=== PATIENT | female | born 1995 | race Caucasian/White ===

== ENCOUNTER 2016-05-31 11:16 | Emergency (ER) | payer OTHER ==
[~2016-05-31 11:16] MED LIST: FERRTAB2 PO
--- NOTE | 2016-05-31 11:59 | PD ---
HPI Chief Complaint nonreactive NST Date Seen: May 31, 2016 Time Seen: 11:46 Travel History International Travel<30 Days: No Contact w/Intl Traveler<30Days: No History of Present Illness HPI 20 y/o at 40/1 weeks presents from her OB office for nonreactive NST. She is seen by Chasity Chamorro, had appointment this morning and was referred over. Denies any complaints or other symptoms. Denies any vaginal bleeding/ discharge, loss of fluid, contractions. Endorses movement. Denies headache , changes in vision, abdominal pain, edema. Denies chest pain, SOB, leg pain. Para: 0 : 1 History Past Medical History Narrative Medical Iron deficiency anemia Obstetric History Obstetric History No problems with this Past Surgical History Surgical History: No Previous Surgery Family History Family History: Negative Social History Alcohol Use: No Tobacco Use: No Substance Abuse: No Allergies-Medications (Allergen,Severity, Reaction): Coded Allergies: No Known Allergies (Unverified , 05/31/16) Home Meds Active Scripts Multi-Vit/Iron-Folic Hatb-O82-Phj C (Ferralet)90-1-0.012-120 mg Tab1 Tab PO DAILY #30 BOTTLE Ref 5 Prov:Alysa Olivares CNM [facility] 03/16/16 Review of Systems General / Constitutional: Weight Gain, No: Fever, Weight Loss, Chills Eyes: No: Blurred Vision, Visual changes HENT: No: Headaches, Vertigo, Lightheadedness Cardiovascular: No: Irregular Rhythm, Chest Pain or Discomfort, Palpitations, Tachycardia, Syncope Respiratory: No: Cough, Short of Breath, Wheezing Gastrointestinal: No: Nausea, Vomiting, Diarrhea, Abdominal Pain, Constipation Genitourinary: No: Urgency, Frequency, Dysuria, Pelvic Pain, Discharge, Vaginal Bleeding Musculoskeletal: No: Weakness, Edema Skin: No Rash, No Itching, No Change in Pigmentation Neurologic: No: Weakness, Dizziness, Syncope Psychiatric: No: Anxiety, Depression Endocrine: No: Heat Intolerance, Cold Intolerance Hematologic/Lymphatic: No Easy Bruising, No Lymph Node Enlargement Physical Exam Narrative GENERAL: Well-nourished, well-developed patient. SKIN: Warm and dry. HEAD: Normocephalic and atraumatic. EYES: No scleral icterus. No injection or drainage. ENT: No nasal drainage noted. Mucous membranes pink. Airway patent. NECK: Supple, trachea midline. No JVD. CARDIOVASCULAR: Regular rate and rhythm without murmurs, gallops, or rubs. RESPIRATORY: Breath sounds equal bilaterally. No accessory muscle use. ABDOMEN/GI: Abdomen soft, non-tender, bowel sounds present, no rebound, no guarding Gravid to 40 weeks size Fundal Height: 40 GENITOURINARY: Dilatation: 1 Effacement: 0 Station: -2 Presentation: vertex Membranes: intact Uterine Contractions: none FHT's: Category: 1 Baseline: 150 Reactive: yes Variability: moderate Decels: none EXTREMITIES: No cyanosis or edema. BACK: Nontender without obvious deformity. No CVA tenderness. NEUROLOGICAL: Awake and alert. Motor and sensory grossly within normal limits. Five out of 5 muscle strength in all muscle groups. Normal speech. Data Data Vital Signs Reviewed: Yes [facility] Medical Record Reviewed: Yes Interpretation(s) 20 y/o at 40/1 weeks presents after nonreactive NST 1) IUP with nonreactive NST in office - heart monitoring - Monitor vitals - Cervical check Narrative Course / MDM Cervical check: 1cm dilated. 0%, -2. Category 1 FHT is reassuring Discharge home in stable condition. Return to ED if new or worsening symptoms F/u with OB Diagnosis Diagnosis: Primary Impression: Normal in third trimester Disposition: 01 DISCHARGE HOME Condition: Stable Adolfo Hare MD R1 May 31, 2016 11:59
--- NOTE | 2016-05-31 12:34 | PD ---
History of Present Illness History of Present Illness This patient is a 20-year-old white female at 40 weeks gestation [facility] Chamorro for evaluation of nonreactive NST in their clinic. Patient denies a pains or problems obvious active and she has no bleeding or ruptured membranes.. heart rate tracing is reactive to good variability and no regular contractions cervix was checked and she is fingertip thick and high will discharge home to rest and kick counts her baby. Bry Boss II, MD May 31, 2016 12:33
[2016-07-20] MEDS ORDERED: ORTHTAB4 PO (09:49)
== END 2016-05-31 13:14 | disposition home or self-care (01) ==
LOC: HOBED 11:16
DX: O26.893 Other specified pregnancy related conditions, third trimester (principal); Z34.03 Encounter for supervision of normal first pregnancy, third trimester; D50.9 Iron deficiency anemia, unspecified; Z3A.40 40 weeks gestation of pregnancy
CPT/HCPCS: 99284

== ENCOUNTER 2016-06-03 11:00 | Emergency (ER) | payer OTHER ==
[2016-06-03] VITALS (10 sets, daily range): BP systolic 135; BP diastolic 81; PULSE 51–108; RESP 18; TEMP 98
--- NOTE | 2016-06-03 11:21 | PD ---
HPI Chief Complaint non-reactive NST and stress test in clinic, sent by OB provider Date Seen: Jun 03, 2016 Time Seen: 11:15 (Constantino Harvey MD) Travel History International Travel<30 Days: No Contact w/Intl Traveler<30Days: No (Constantino Harvey MD) History of Present Illness HPI 20 year old G1 at 40/4 weeks gestation was sent to the OB ED by her OB doctor after a non-stress test was non-reactive. A follow up stress test was also non- reactive. She is not having contractions, loss of fluid, or vaginal bleeding. She has good movements. No other symptoms currently, she reports she feels fine. (Constantino Harvey MD) History Past Medical History Narrative Medical None (Constantino Harvey MD) Obstetric History Obstetric History G1 Patient of Chasity Chamorro Up to date on care No complications in (Constantino Harvey MD) Past Surgical History Narrative Surgical None (Constantino Harvey MD) Family History Narrative Family History None (Constantino Harvey MD) Social History Narrative Social History None (Constantino Harvey MD) Allergies-Medications (Allergen,Severity, Reaction): Coded Allergies: No Known Allergies (Unverified , 06/03/16) Home Meds Active Scripts Multi-Vit/Iron-Folic Oprn-I89-Tvc C (Ferralet)90-1-0.012-120 mg Tab1 Tab PO DAILY #30 BOTTLE Ref 5 Prov:Alysa Olivares SH[facility] 03/16/16 Review of Systems General / Constitutional: Weight Gain, No: Fever, Weight Loss, Chills Eyes: No: Diploplia, Blurred Vision, Visual changes, Pain HENT: No: Headaches, Vertigo, Lightheadedness Cardiovascular: No: Irregular Rhythm, Chest Pain or Discomfort, Palpitations, Tachycardia Respiratory: No: Cough, Short of Breath, Wheezing Gastrointestinal: No: Nausea, Vomiting, Diarrhea, Loss of Appetite Genitourinary: No: Urgency, Frequency, Dysuria Musculoskeletal: Cramping, No: Weakness, Edema Skin: No Rash, No Itching Neurologic: No: Weakness, Dizziness Psychiatric: No: Anxiety, Depression, Mood Disorder Endocrine: No: Heat Intolerance, Cold Intolerance (Constantino Harvey MD) Physical Exam Narrative GENERAL: Well-nourished, well-developed patient. SKIN: Warm and dry. HEAD: Normocephalic and atraumatic. EYES: No scleral icterus. No injection or drainage. ENT: No nasal drainage noted. Mucous membranes pink. Airway patent. NECK: Supple, trachea midline. No JVD. CARDIOVASCULAR: Regular rate and rhythm without murmurs, gallops, or rubs. RESPIRATORY: Breath sounds equal bilaterally. No accessory muscle use. BREASTS: Bilateral exam showed no masses , no retractions, no nipple discharge. ABDOMEN/GI: Abdomen soft, non-tender, bowel sounds present, no rebound, no guarding Gravid to 40 weeks size GENITOURINARY: External Genitalia: intact and normal in appearance Dilatation: 1 Effacement: 0 Station: -2 Presentation: vertex Membranes: intact Uterine Contractions: none regular FHT's: Category: 1 Baseline: 150's Reactive: yes Variability: moderate Decels: none EXTREMITIES: No cyanosis or edema. BACK: Nontender without obvious deformity. No CVA tenderness. NEUROLOGICAL: Awake and alert. Motor and sensory grossly within normal limits. Five out of 5 muscle strength in all muscle groups. Normal speech. (Constantino Harvey MD R2) Data Data Vital Signs Reviewed: Yes (Constantino Harvey MD R2) MDM Medical Record Reviewed: Yes Interpretation(s) 20 year old G1 at 40/4 weeks gestation sent from OB clinic with non-reactive NST and stress test. - Continuous monitoring - Non-stress test. - Labor check, monitor for contractions - Given her dates, put on schedule for induction before discharge. Discuss with Dr. Marquez Narrative Course / MDM 20 year old G1 at 40/4 weeks gestation sent from OB clinic with non-reactive NST and stress test. - NST is reactive. - No contractions - 1 cm dilated currently - BPP 8/8 - GBS negative - Scheduled tonight for induction for post-dates (Constantino Harvey MD R2) Attending Attestation Patient seen and evaluated with resident under direct supervision, agree with assessment and plan. (Ever Marquez MD) Diagnosis Diagnosis: Primary Impression: Non-stress test reactive Disposition: 01 DISCHARGE HOME Condition: Good Constantino Harvey MD R2 Jun 03, 2016 11:21 Ever Marquez MD Jun 03, 2016 13:20
[2016-07-20] MEDS ORDERED: ORTHTAB4 PO (09:49)
== END 2016-06-03 12:29 | disposition home or self-care (01) ==
LOC: HOBED 11:00
DX: O26.93 Pregnancy related conditions, unspecified, third trimester (principal); Z3A.40 40 weeks gestation of pregnancy
CPT/HCPCS: 59025; 76816; 76819

== ENCOUNTER 2016-06-03 18:40 | Inpatient (IN) | payer OTHER ==
[~2016-06-03] VITALS: Ht 160 cm; Wt 69.9 kg
[2016-06-03 20:00] VITALS: RESP 18
--- NOTE | 2016-06-03 20:23 | HHI.HP ---
History & Physical H&P HPI History of Present Illness HPI 20 year old G1 at 40/4 weeks gestation was sent to the OB ED by her OB doctor after a non-stress test was non-reactive. A follow up stress test was also non- reactive. She is not having contractions, loss of fluid, or vaginal bleeding. She has good movements. No other symptoms currently, she reports she feels fine. History (Limited) History Past Medical History Narrative Medical None Obstetric History Obstetric History G1 Patient of Chasity Chamorro Up to date on care No complications in Past Surgical History Narrative Surgical None Family History Narrative Family History None Social History Narrative Social History None Allergies-Medications Allergies-Medications (Allergen,Severity, Reaction): Coded Allergies: No Known Allergies (Unverified , 06/03/16) Home Meds Active Scripts Multi-Vit/Iron-Folic Wfkx-C31-[id number] C (Ferralet)90-1-0.012-120 mg Tab1 Tab PO DAILY #30 BOTTLE Ref 5 Prov:Alysa Olivares CNM [facility] 03/16/16 ROS Review of Systems General / Constitutional: Weight Gain, No: Fever, Weight Loss, Chills Eyes: No: Diploplia, Blurred Vision, Visual changes, Pain HENT: No: Headaches, Vertigo, Lightheadedness Cardiovascular: No: Irregular Rhythm, Chest Pain or Discomfort, Palpitations, Tachycardia Respiratory: No: Cough, Short of Breath, Wheezing Gastrointestinal: No: Nausea, Vomiting, Diarrhea, Loss of Appetite Genitourinary: No: Urgency, Frequency, Dysuria Musculoskeletal: Cramping, No: Weakness, Edema Skin: No Rash, No Itching Neurologic: No: Weakness, Dizziness Psychiatric: No: Anxiety, Depression, Mood Disorder Endocrine: No: Heat Intolerance, Cold Intolerance Physical Exam Physical Exam Narrative GENERAL: Well-nourished, well-developed patient. SKIN: Warm and dry. HEAD: Normocephalic and atraumatic. EYES: No scleral icterus. No injection or drainage. ENT: No nasal drainage noted. Mucous membranes pink. Airway patent. NECK: Supple, trachea midline. No JVD. CARDIOVASCULAR: Regular rate and rhythm without murmurs, gallops, or rubs. RESPIRATORY: Breath sounds equal bilaterally. No accessory muscle use. BREASTS: Bilateral exam showed no masses , no retractions, no nipple discharge. ABDOMEN/GI: Abdomen soft, non-tender, bowel sounds present, no rebound, no guarding Gravid to 40 weeks size GENITOURINARY: External Genitalia: intact and normal in appearance Dilatation: 1 Effacement: 0 Station: -2 Presentation: vertex Membranes: intact Uterine Contractions: none regular FHT's: Category: 1 Baseline: 150's Reactive: yes Variability: moderate Decels: none EXTREMITIES: No cyanosis or edema. BACK: Nontender without obvious deformity. No CVA tenderness. NEUROLOGICAL: Awake and alert. Motor and sensory grossly within normal limits. Five out of 5 muscle strength in all muscle groups. Normal speech. Data Data Data Vital Signs Reviewed: Yes MDM MDM Medical Record Reviewed: Yes Interpretation(s) 20 year old G1 at 40 and 5/7 weeks admitted for ripening/induction. . - NST is reactive. - No contractions - 1 cm dilated currently - BPP 12/20 this afternoon - GBS negative - Scheduled tonight for induction for post-dates Ever Marquez MD Jun 03, 2016 20:23
[2016-06-03] MEDS ORDERED: LACTATED RINGER'S 1000 ML INJ 1,000 ML IV PRN (20:24)
[2016-06-03] MEDS ORDERED: LIDOCAINE HCL 1% 50 ML VIAL INFIL PRN (20:30)
[2016-06-03] MEDS ORDERED: SODIUM CHLORIDE 0.9% FLUSH 5 ML FLUSH IV FLUSH PRN (20:30)
[2016-06-03] MEDS ORDERED: LIDOCAINE HCL 1% 50 ML VIAL I-DERMAL PRN (20:30)
[2016-06-03] MEDS ORDERED: SODIUM CHLORID 0.9% 500 ML INJ 500 ML IV PRN (20:30)
[2016-06-03] MEDS ORDERED: MISOPROSTOL 25 MCG SUPP VAGINAL ONE (20:30)
[2016-06-03] MEDS ORDERED: MINERAL OIL 10 ML VIAL TOPICAL PRN (20:30)
[2016-06-03] MEDS ORDERED: OXYTOCIN 30 UNITS-500ML PREMIX 500 ML IV ONE (20:30)
[2016-06-03] MEDS ORDERED: CITRIC ACID-SODIUM CITRATE LIQ 30 ML UDC PO SCH (20:30)
[2016-06-03] MEDS ORDERED: SODIUM CHLOR 0.9% 1000 ML INJ 1,000 ML IV PRN (20:44)
[2016-06-03] MEDS: LACTATED RINGER'S 1000 ML INJ 1,000 ML IV SCH (20:44)
[2016-06-03 20:47] LABS: AUTOMATED NEUTROPHIL # 8.9 TH/MM3 (1.8-7.7); BASOPHIL % 0.3 % (0.0-2.0); EOSINOPHIL # 0.1 TH/MM3 (0-0.4); EOSINOPHIL % 0.8 % (0.0-4.0); HEMATOCRIT 27.5 % (35.0-46.0); HEMO FLAGS DIFF FINAL; LYMPH % 19.5 % (9.0-44.0); LYMPHOCYTE # 2.4 TH/MM3 (1.0-4.8); MEAN CELL VOLUME 78.7 FL (80.0-100.0); MEAN CORPUSCULAR HEMOGLOBIN 25.9 PG (27.0-34.0); MEAN CORPUSCULAR HGB CONC 32.9 % (32.0-36.0); MONO % 6.5 % (0.0-8.0); NEUT % 72.9 % (16.0-70.0); PLATELET COUNT 366 TH/MM3 (150-450); RED BLOOD COUNT 3.49 MIL/MM3 (4.00-5.30); RED CELL DISTRIBUTION WIDTH 15.7 % (11.6-17.2); WHITE BLOOD COUNT 12.2 TH/MM3 (4.0-11.0)
[2016-06-03] MEDS: SODIUM CHLORIDE 0.9% FLUSH 5 ML FLUSH IV FLUSH SCH (21:00)
[2016-06-03 21:03] LABS: BACTERIA, URINE RARE /hpf; BLOOD, URINE NEG (NEG); COMMENT (UR) CULT NOT INDICATED; CULTURE IF INDICATED CULT NOT INDICATED; GLUCOSE,URINE NEG (NEG); KETONE, URINE NEG (NEG); MUCUS URINE FEW /lpf (OCC); NITRITE,URINE NEG (NEG); PH, URINE 6.5 (5.0-8.5); URINE COLOR YELLOW (YELLW/STRAW)
[2016-06-04] VITALS (70 sets, daily range): BP systolic 103–140; BP diastolic 55–90; PULSE 64–105; RESP 18; TEMP 98.1–98.7
[2016-06-04] MEDS ORDERED: MISOPROSTOL 100 MCG TAB VAGINAL ONE ×2 (06:15→08:45)
[2016-06-04] MEDS ORDERED: OXYTOCIN 10 UNIT/ML AMP ONE (07:54)
[2016-06-04] MEDS: SODIUM CHLORIDE 0.9% FLUSH 5 ML FLUSH IV FLUSH SCH (09:00)
[2016-06-04] MEDS ORDERED: MISOPROSTOL 25 MCG SUPP VAGINAL SCH (09:30)
[2016-06-04] MEDS: LACTATED RINGER'S 1000 ML INJ 1,000 ML IV SCH ×2 (09:35→14:46)
--- NOTE | 2016-06-04 14:07 | PD.LABORPN ---
Subjective Subjective Pt isela q 3 min , FHR reactive AROM - clear , IUPC FSE inserted cx -2-3/60/-3/vtx Objective Vital Signs Vital Signs Date Time Temp Pulse Resp B/P Pulse Ox O2 Delivery O2 Flow Rate FiO2 06/04/16 12:51 105 18 140/90 06/04/16 11:45 18 06/04/16 11:42 76 129/67 06/04/16 11:00 74 109/58 06/04/16 11:00 18 06/04/16 10:26 98.5 06/04/16 09:59 79 124/64 06/04/16 09:57 18 06/04/16 09:00 18 06/04/16 07:45 79 116/63 Objective Pelvic Exam: Cervix: [-] Dilatation: [-2-3] Effacement: [60-] Station: [-3] Presentation: [-vtx] Membranes: ruptured] AROM clear FHT's: Category: [1-] Baseline: [-133] Reactive: [-yes] Variability: [mod-] Decels: [-none] Bry Boss II, MD Jun 04, 2016 14:07
[2016-06-04] MEDS ORDERED: OXYTOCIN 30 UNITS-500ML PREMIX 500 ML IV SCH (17:00)
[2016-06-04] MEDS ORDERED: fentaNYL 2MCG-BUPIV 0.125% INJ 100 ML ONE (19:04)
[2016-06-04] MEDS ORDERED: ONDANSETRON HCL 4 MG/2 ML VIAL IV PUSH PRN (19:15)
--- NOTE | 2016-06-04 23:22 | PD.LABORPN ---
Subjective Subjective No concerns at this time. Objective Vital Signs Vital Signs Date Time Temp Pulse Resp B/P Pulse Ox O2 Delivery O2 Flow Rate FiO2 06/04/16 21:40 83 06/04/16 21:35 82 06/04/16 21:30 94 106/61 06/04/16 21:20 94 06/04/16 21:15 87 116/70 06/04/16 21:10 84 06/04/16 21:05 73 06/04/16 21:00 98 18 06/04/16 20:45 72 06/04/16 20:45 18 06/04/16 20:30 64 06/04/16 20:30 18 06/04/16 20:15 18 06/04/16 20:15 69 06/04/16 20:05 89 06/04/16 20:00 71 06/04/16 19:55 75 06/04/16 19:50 79 06/04/16 19:45 76 06/04/16 19:40 84 06/04/16 19:35 75 06/04/16 19:30 84 06/04/16 19:25 84 06/04/16 18:30 98.1 06/04/16 18:28 18 06/04/16 18:27 93 130/71 06/04/16 17:56 84 18 129/85 06/04/16 16:12 18 06/04/16 16:06 18 Objective Pelvic Exam: Cervix: Soft Dilatation: 5-6 Effacement: 80 Station: -1 Presentation: Vertex Membranes: AROM @ 1400 on 06/04 Uterine Contractions: Every 1-5 mins FHT's: Category: 2 Baseline: 145 Reactive: Y Variability: moderate Decels: variables occasionally with contractions (approx 30%) Assessment/Plan Assessment and Plan 20 yo at 40/5 weeks gestation admitted for induction of labor #1 IUP Category 2 tracing, reassuring * Lay patient on side * Continue to monitor FHTs #2 Induction of labor Progressing well (approx 2-3 cm in last 3-4 hours) * Continue pitocin * epidural in place * cervical checks #[address] Boss, Pantera Gonzalez MD R1 Jun 04, 2016 23:22
--- NOTE | 2016-06-04 23:24 | PD.LABORPN ---
Subjective Subjective The patient's cervical exam is changed to see 5--6 cm 80% and -1 station heart rate tracing is reactive with good variability, however she's had when the contractions became too frequent she had several late decelerations as result of that but the pitocin was decreased somewhat and the contractions spaced out a bit and now there is no sign of deceleration. Continue current management patient is comfortable with her epidural, anticipate vaginal delivery. Objective Vital Signs Vital Signs Date Time Temp Pulse Resp B/P Pulse Ox O2 Delivery O2 Flow Rate FiO2 06/04/16 21:40 83 06/04/16 21:35 82 06/04/16 21:30 94 106/61 06/04/16 21:20 94 06/04/16 21:15 87 116/70 06/04/16 21:10 84 06/04/16 21:05 73 06/04/16 21:00 98 18 06/04/16 20:45 72 06/04/16 20:45 18 06/04/16 20:30 64 06/04/16 20:30 18 06/04/16 20:15 18 06/04/16 20:15 69 06/04/16 20:05 89 06/04/16 20:00 71 06/04/16 19:55 75 06/04/16 19:50 79 06/04/16 19:45 76 06/04/16 19:40 84 06/04/16 19:35 75 06/04/16 19:30 84 06/04/16 19:25 84 06/04/16 18:30 98.1 06/04/16 18:28 18 06/04/16 18:27 93 130/71 06/04/16 17:56 84 18 129/85 06/04/16 16:12 18 06/04/16 16:06 18 Objective Pelvic Exam: Cervix: [-] Dilatation: [5-6-] Effacement: [80-] Station: [-1] Presentation: [vtx-] Membranes: r ruptured] Uterine Contractions: [-reg] FHT's: Category: [1-] Baseline: [-144] Reactive: [-yes] Variability: [mod-] Decels: [-]occasional decel Assessment/Plan Assessment and Plan Plan to continue labor augmentation, maternal monitoring, epidural anesthetic and anticipate vaginal delivery Bry Boss II, MD Jun 04, 2016 23:24
[2016-06-05] VITALS (78 sets, daily range): BP systolic 86–144; BP diastolic 37–105; PULSE 74–136; RESP 16–18; TEMP 97.8–100
[2016-06-05] MEDS ORDERED: fentaNYL 2MCG-BUPIV 0.125% INJ 100 ML ONE (01:50)
[2016-06-05] MEDS ORDERED: WITCH HAZEL 50%/GLYCERIN 12.5% 40 PAD JAR TOPICAL PRN (09:00)
[2016-06-05] MEDS ORDERED: CLINDAMYCIN 150 MG CAP PO SCH (09:00)
[2016-06-05] MEDS ORDERED: SODIUM CHLORIDE 0.9% FLUSH 5 ML FLUSH IV SCH (09:00)
[2016-06-05] MEDS ORDERED: SODIUM CHLORIDE 0.9% FLUSH 5 ML FLUSH IV PRN (09:00)
[2016-06-05] MEDS ORDERED: oxyCODONE/ACETAMINOPHEN 5 MG/325 MG TAB PO PRN ×2 (09:00)
[2016-06-05] MEDS ORDERED: ONDANSETRON ODT 4 MG TAB PO PRN (09:00)
[2016-06-05] MEDS ORDERED: ZOLPIDEM TARTRATE 5 MG TAB PO PRN (09:00)
[2016-06-05] MEDS ORDERED: ACETAMINOPHEN 325 MG TAB PO PRN (09:00)
[2016-06-05] MEDS ORDERED: BENZOCAINE 20% TOPICAL SPRAY 60 ML CAN TOPICAL PRN (09:00)
[2016-06-05] MEDS ORDERED: ALUMINUM/MAGNESIUM/SIMETH 30 ML CUP PO PRN (09:00)
--- NOTE | 2016-06-05 09:23 | PD.OB.DELI ---
Anesthesia: Epidural Episiotomy: Midline Vaginal Delivery: Forceps Presentation: Occiput posterior Nuchal Cord: None Infant: Female One Minute : 6 Five Minute : 8 Infant Care: Suctioned, Spontaneous crying, Responded to stimulation Placenta: Spontaneous delivery, Intact, 3 vessel cord, Cord pH Laceration: 4 deg, Involving anal sphincter, Into rectum Repair: Vicryl interrupted, Vicryl running Additional Information Doe forceps applied to presenting part ROP at +2 station delivery facilitated easily with moderate traction Bry Boss II, MD Jun 05, 2016 09:23
[2016-06-05 09:25] LABS: BLOOD GAS BASE EXCESS -5.2 mmol/L (-2-2); BLOOD GAS O2 HGB SATURATION 46 % (90-100); CORD BLOOD GAS HCO3 19 mmol/L (21-29); CORD BLOOD GAS PCO2 36 mmHG (34-78); CORD BLOOD GAS PH 7.35 (7.14-7.42); CORD BLOOD GAS PO2 23 mmHG (3.0-40.0); DRAW SITE CORD BLOOD; STAT NO
[2016-06-05] MEDS: CLINDAMYCIN INJ 900 MG in SODIUM CHLORIDE 0.9% INJ 100 ML IV SCH (10:10)
[2016-06-05] MEDS: IBUPROFEN 600 MG TAB PO PRN (10:16)
[2016-06-05] MEDS ORDERED: ePHEDrine/NS 50 MG/5 ML SYR IV PRN (11:30)
[2016-06-05] MEDS ORDERED: NO SYSTEM NARCOTICS XX PRN (11:30)
[2016-06-05] MEDS ORDERED: fentaNYL 2MCG-BUPIV 0.125% INJ 100 ML EPIDURAL SCH (11:30)
[2016-06-05] MEDS ORDERED: DO NOT ADMINISTER ANTICOAGULANTS XX PRN (11:30)
[2016-06-05] MEDS ORDERED: MEASLES, MUMPS, RUBELLA VACCINE 0.5 ML VIAL SQ ONE (16:00)
[2016-06-05] MEDS ORDERED: DIPHTH/TETANUS/ACEL PERTUSSIS (BOOSTER) 0.5 ML VIAL/PFS IM ONE (16:00)
[2016-06-05] MEDS: DOCUSATE SODIUM 50 MG/SENNA 8.6 MG TAB PO PRN (19:53)
[2016-06-06] VITALS (8 sets, daily range): BP systolic 103–121; BP diastolic 52–75; PULSE 96–111; RESP 16–18; TEMP 97.8–99.3
[2016-06-06] MEDS: CLINDAMYCIN INJ 900 MG in SODIUM CHLORIDE 0.9% INJ 100 ML IV SCH ×3 (02:35→18:00)
[2016-06-06] MEDS: IBUPROFEN 600 MG TAB PO PRN ×2 (02:42→20:44)
[2016-06-06 05:59] LABS: AUTOMATED NEUTROPHIL # 16.3 TH/MM3 (1.8-7.7); BASOPHIL % 0.1 % (0.0-2.0); EOSINOPHIL % 0.1 % (0.0-4.0); LYMPH % 9.3 % (9.0-44.0); LYMPHOCYTE # 1.8 TH/MM3 (1.0-4.8); MEAN CELL VOLUME 78.3 FL (80.0-100.0); MEAN CORPUSCULAR HEMOGLOBIN 25.8 PG (27.0-34.0); MEAN CORPUSCULAR HGB CONC 32.9 % (32.0-36.0); MONO % 7.1 % (0.0-8.0); NEUT % 83.4 % (16.0-70.0); PLATELET COUNT 262 TH/MM3 (150-450); RED BLOOD COUNT 2.11 MIL/MM3 (4.00-5.30); WHITE BLOOD COUNT 19.6 TH/MM3 (4.0-11.0)
[2016-06-06 06:12] LABS: HEMO FLAGS DIFF FINAL
[2016-06-06 06:14] LABS: HEMATOCRIT 16.5 % (35.0-46.0)
[2016-06-06] MEDS ORDERED: diphenhydrAMINE HCL 25 MG CAP PO ONE (06:45)
[2016-06-06] MEDS ORDERED: ACETAMINOPHEN 325 MG TAB PO ONE (06:45)
--- NOTE | 2016-06-06 08:16 | HHI.OB ---
Subjective Post Day: 1 Remarks day #1. AFVSS overnight. Pain improving. Decreased lochia. Denies dysuria. She is feeding the baby via breast. Appetite good. No nausea or vomiting. Endorses flatus. Denies bowel movement. Ambulating well. Denies calf pain, shortness of breath, or cough. Otherwise, she is doing well this morning and has no other complaints. (Adolfo Hare MD R1) Objective Vitals/I&O Vital Signs Date Time Temp Pulse Resp B/P Pulse Ox O2 Delivery O2 Flow Rate FiO2 06/05/16 19:46 98.0 16 06/05/16 19:46 92 112/74 06/05/16 09:46 105 114/76 06/05/16 09:30 104 127/69 06/05/16 09:15 109 121/68 06/05/16 09:04 136 122/55 06/05/16 08:55 97.8 17 Objective Remarks GENERAL: Well-nourished, well-developed patient. CARDIOVASCULAR: Regular rate and rhythm without murmurs, gallops, or rubs. RESPIRATORY: Breath sounds equal bilaterally. No accessory muscle use. ABDOMEN/GI: Abdomen soft, non-tender. Fundus: Firm, non-tender at umbilicus. GENITOURINARY: Light to moderate bleeding. EXTREMITIES: No cyanosis or edema, non-tender, without signs of DVT. Medications and IVs Current Medications Medications (Trade) Dose Ordered Sig/Rick Route Start Time Stop Time Status Last Admin (NS Flush) 2 ml BID IV 06/05/16 09:00 (NS Flush) 2 ml UNSCH PRN IV 06/05/16 09:00 (Tylenol) 650 mg Q4H PRN PO 06/05/16 09:00 (Motrin) 600 mg Q6H PRN PO 06/05/16 09:00 06/06/16 02:42 (Percocet 5-325 Mg) 1 tab Q4H PRN PO 06/05/16 09:00 06/06/16 02:42 (Percocet 5-325 Mg) 2 tab Q4H PRN PO 06/05/16 09:00 (Americaine 20% Top Spr) 1 spray Q4H PRN TOPICAL 06/05/16 09:00 06/05/16 12:50 (Tucks Pads) 1 applic QID PRN TOPICAL 06/05/16 09:00 06/05/16 12:49 (Dana-Colace) 2 tab Q12H PRN PO 06/05/16 09:00 06/05/16 19:53 (Ambien) 5 mg HS PRN PO 06/05/16 09:00 (Mag-Al Plus Susp Liq) 15 ml Q8H PRN PO 06/05/16 09:00 Ondansetron HCl 4 mg 4 mg Q6H PRN PO 06/05/16 09:00 (Cleocin Inj/NS Inj) 106 ml @ 212 mls/hr Q8H IV 06/05/16 10:00 06/06/16 02:35 Miscellaneous Information No systemic narcotics to be given except... UNSCH PRN XX 06/05/16 11:30 06/06/16 11:29 Miscellaneous Information DO NOT ADMINISTER ANY ANTICOAGUL... UNSCH PRN XX 06/05/16 11:30 06/06/16 11:29 (fentaNYL 2MCG-BUPIV 0.125% INJ) 100 ml @ 0 mls/hr TITRATE EPIDURAL 06/05/16 11:30 (ePHEDrine/NS 50 MG/5 ML SYR) 10 mg UNSCH PRN IV 06/05/16 11:30 06/06/16 11:29 (Adolfo Hare MD R1) Assessment/Plan Assessment and Plan 20y/o who is PPD#1 s/p . -Continue routine care. -Percocet and Motrin PRN pain. -Encouraged OOB. Advised pelvic rest for 6 wks. -Will need a f/u appt. within 6 wks. -Re: ctrl, she would like oral contraceptives -D/c in 1-2 more days. wdw OB attending Discharge Planning 1-2 days (Adolfo Hare MD R1) Attending Attestation Patient seen and evaluated with the resident under direct supervision, I agree with the assessment and plan. (Dc Lowery MD) Adolfo Hare MD R1 Jun 06, 2016 08:16 Dc Lowery MD Jun 07, 2016 17:49
[2016-06-06] MEDS ORDERED: AMPICILLIN-SULBACTAM INJ 1,500 MG VIAL IM SCH (11:00)
[2016-06-06] MEDS ORDERED: AMPICILLIN-SULBACTAM INJ 1,500 MG in SODIUM CHLORIDE 0.9% INJ 100 ML IV SCH (12:30)
[2016-06-06] MEDS: AMPICILLIN-SULBACTAM INJ 1,500 MG in SODIUM CHLORIDE 0.9% INJ 100 ML IV SCH ×2 (13:28→20:43)
[2016-06-06] MEDS ORDERED: diphenhydrAMINE HCL 25 MG CAP PO PRN (19:30)
[2016-06-06] MEDS: DOCUSATE SODIUM 50 MG/SENNA 8.6 MG TAB PO PRN (20:45)
[2016-06-07 01:50] VITALS: BP 105/51; PULSE 94; RESP 18; TEMP 98.3
[2016-06-07 02:05] VITALS: BP 121/62; PULSE 91; RESP 18; TEMP 98.1
[2016-06-07 02:20] VITALS: BP 116/57; PULSE 90; RESP 18; TEMP 98.2
[2016-06-07] MEDS ORDERED: CLINDAMYCIN INJ 900 MG in SODIUM CHLORIDE 0.9% INJ 100 ML IV SCH (04:00)
[2016-06-07 04:15] VITALS: BP 108/53; PULSE 89; RESP 16; TEMP 98.4
[2016-06-07] MEDS: AMPICILLIN-SULBACTAM INJ 1,500 MG in SODIUM CHLORIDE 0.9% INJ 100 ML IV SCH ×2 (04:42→09:38)
[2016-06-07 06:08] LABS: HEMATOCRIT 27.4 % (35.0-46.0); REVIEW FLAG FINAL
--- NOTE | 2016-06-07 07:33 | HHI.OB ---
Subjective Post Day: 2 Remarks day #2. AFVSS overnight. No fever/chills. Pain well controlled. Decreased lochia. Denies dysuria. She is feeding the baby via bottle. Appetite good. No nausea or vomiting. Endorses flatus. Denies bowel movement. Ambulating well. Denies calf pain, shortness of breath, or cough. Otherwise , she is doing well this morning and has no other complaints. (Adolfo Hare MD R1) Remarks PPD #2 s/p Forceps delivery with PP anemia. S/p 2 Units PRBC. Hgb 5.4, now 9.3. WBC was slightly elevated yesterday, repeat this AM. 4th degree tear, patient states no pain, using witch vita. Normal voiding. Cramping well controlled. (Ann Mcknight MD) Objective Vitals/I&O Vital Signs Date Time Temp Pulse Resp B/P Pulse Ox O2 Delivery O2 Flow Rate FiO2 06/07/16 04:15 98.4 89 16 108/53 06/07/16 02:20 98.2 90 18 116/57 06/07/16 02:05 98.1 91 18 121/62 06/07/16 01:50 98.3 94 18 105/51 06/06/16 23:55 98.6 106 18 112/55 06/06/16 23:40 98.5 100 18 103/57 06/06/16 23:25 98.6 96 18 104/57 06/06/16 23:10 99.3 100 18 106/54 06/06/16 16:30 98.4 100 16 105/62 06/06/16 14:32 97.8 111 16 115/75 06/06/16 14:15 98.0 109 16 121/71 Objective Remarks GENERAL: Well-nourished, well-developed patient. CARDIOVASCULAR: Regular rate and rhythm without murmurs, gallops, or rubs. RESPIRATORY: Breath sounds equal bilaterally. No accessory muscle use. ABDOMEN/GI: Abdomen soft, non-tender. Fundus: Firm, non-tender at umbilicus. GENITOURINARY: Light to moderate bleeding. EXTREMITIES: No cyanosis or edema, non-tender, without signs of DVT. Medications and IVs Current Medications Medications (Trade) Dose Ordered Sig/Rick Route Start Time Stop Time Status Last Admin (NS Flush) 2 ml BID IV 06/05/16 09:00 (NS Flush) 2 ml UNSCH PRN IV 06/05/16 09:00 (Tylenol) 650 mg Q4H PRN PO 06/05/16 09:00 (Motrin) 600 mg Q6H PRN PO 06/05/16 09:00 06/06/16 20:44 (Percocet 5-325 Mg) 1 tab Q4H PRN PO 06/05/16 09:00 06/06/16 02:42 (Percocet 5-325 Mg) 2 tab Q4H PRN PO 06/05/16 09:00 (Americaine 20% Top Spr) 1 spray Q4H PRN TOPICAL 06/05/16 09:00 06/05/16 12:50 (Tucks Pads) 1 applic QID PRN TOPICAL 06/05/16 09:00 06/05/16 12:49 (Dana-Colace) 2 tab Q12H PRN PO 06/05/16 09:00 06/06/16 20:45 (Ambien) 5 mg HS PRN PO 06/05/16 09:00 (Mag-Al Plus Susp Liq) 15 ml Q8H PRN PO 06/05/16 09:00 Ondansetron HCl 4 mg 4 mg Q6H PRN PO 06/05/16 09:00 Fentanyl/ Bupivacaine HCl 100 ml @ 0 mls/hr TITRATE EPIDURAL 06/05/16 11:30 Clindamycin Phosphate 900 mg/ Sodium Chloride 106 ml @ 212 mls/hr Q8H IV 06/07/16 04:00 06/07/16 04:41 (Unasyn Inj/NS Inj) 100 ml @ 200 mls/hr Q6H IV 06/07/16 04:00 06/07/16 04:42 (Adolfo Hare MD R1) Other Results CBC Diagram 06/07/16 05:53 06/07/16 08:10 (Ann Mcknight MD) Assessment/Plan Assessment and Plan 20y/o who is PPD#2 s/p . -Leukocytosis following 4th degree laceration, on Unasyn -Hemoglobin increased to 9.3 after 3 pRBC transfusions -Repeat CBC this morning -Continue routine care. -Percocet and Motrin PRN pain. -Encouraged OOB. Advised pelvic rest for 6 wks. -Will need a f/u appt. within 6 wks. -Re: ctrl, she would like oral contraceptives -D/c possibly today after repeat CBC dw OB attending (Adolfo Hare MD R1) Attending Attestation PPD #2 s/p - Forceps Doing well at this time Anemia asymptomatic s/p 3units PRBC Received Unasyn for antibiotics with 4th degree tear Repeat CBC this AM Anticipate D/c home today Reviewed PP precautions F/u at [facility] 2 weeks Patient seen and examined with Dr. Hare (Ann Mcknight MD) Adolfo Hare MD R1 Jun 07, 2016 07:33 Ann Mcknight MD Jun 07, 2016 08:38
--- NOTE | 2016-06-07 07:42 | HHI.DCPOC ---
Discharge Care Plan Diagnosis: (1) Normal in third trimester (2) Fourth degree perineal laceration Goals to Promote Your Health * To prevent worsening of your condition and complications * To maintain your health at the optimal level Directions to Meet Your Goals Take your medications as prescribed Follow your dietary instruction Follow activity as directed Keep your appointments as scheduled Take your immunizations and boosters as scheduled If your symptoms worsen call your PCP, if no PCP go to Urgent Care Center or Emergency Room Smoking is Dangerous to Your Health. Avoid second hand smoke Call the 24-hour hour crisis hotline for domestic abuse at Adolfo Hare MD R1 Jun 07, 2016 07:42 Ann Mcknight MD Jun 07, 2016 08:39
[2016-06-07] MEDS ORDERED: IBUP-232 PO (07:43)
[2016-06-07] MEDS ORDERED: SENN1TAB PO (07:43)
[2016-06-07 08:28] LABS: HEMATOCRIT 27.4 % (35.0-46.0); MEAN CELL VOLUME 79.5 FL (80.0-100.0); PLATELET COUNT 264 TH/MM3 (150-450); RED BLOOD COUNT 3.45 MIL/MM3 (4.00-5.30); RED CELL DISTRIBUTION WIDTH 15.8 % (11.6-17.2); REVIEW FLAG FINAL; WHITE BLOOD COUNT 16.8 TH/MM3 (4.0-11.0)
[2016-07-20] MEDS ORDERED: ORTHTAB4 PO (09:49)
== END 2016-06-07 11:44 | disposition home or self-care (01) | DRG 775 ==
LOC: H2EB 18:40 → H1EA 06-05 11:31
PROVIDERS: ADMIT Obstetrics & Gynecology; ATTEND Obstetrics & Gynecology
PROC: 3E0P7GC Introduction of Other Therapeutic Substance into Female Reproductive, Via Natural or Artificial Opening (ICD-10-PCS; 2016-06-03)
PROC: 10907ZC Drainage of Amniotic Fluid, Therapeutic from Products of Conception, Via Natural or Artificial Opening (ICD-10-PCS; 2016-06-04)
PROC: 10H07YZ Insertion of Other Device into Products of Conception, Via Natural or Artificial Opening (ICD-10-PCS; 2016-06-04)
PROC: 3E033VJ Introduction of Other Hormone into Peripheral Vein, Percutaneous Approach (ICD-10-PCS; 2016-06-04)
PROC: 3E0S3CZ (ICD-10-PCS; 2016-06-04)
PROC: 00HU33Z Insertion of Infusion Device into Spinal Canal, Percutaneous Approach (ICD-10-PCS; 2016-06-04)
PROC: 10D07Z3 Extraction of Products of Conception, Low Forceps, Via Natural or Artificial Opening (ICD-10-PCS; principal; 2016-06-05)
PROC: 0DQP0ZZ Repair Rectum, Open Approach (ICD-10-PCS; 2016-06-05)
PROC: 0W8NXZZ Division of Female Perineum, External Approach (ICD-10-PCS; 2016-06-05)
PROC: 30233N1 Transfusion of Nonautologous Red Blood Cells into Peripheral Vein, Percutaneous Approach (ICD-10-PCS; 2016-06-06)
DX: O48.0 Post-term pregnancy (principal); O70.3 Fourth degree perineal laceration during delivery; O90.81 Anemia of the puerperium; D64.9 Anemia, unspecified; O76 Abnormality in fetal heart rate and rhythm complicating labor and delivery; Z37.0 Single live birth; Z3A.40 40 weeks gestation of pregnancy
CPT/HCPCS: 36430; 59025; 81001; 82805; 85014; 85018; 85025; 85027; 86850; 86900; 86901; 86920; 90715; J0295; J2405; J2590; J3010; J7120; P9016